=== PATIENT | male | born 1945 | race African-American/Black ===

== ENCOUNTER 2017-12-31 11:55 | Inpatient (IN) ==
[~2017-12-31 11:55] MED LIST: *HR* Amiodarone 150 MG/3 ML VIAL IVPB ONE; *HR* EPINEPHrine 1 MG/10 ML SYRINGE IVP ONE
[2017-12-31] MEDS ORDERED: *HR* Heparin 5,000 UNIT/ML VIAL ONE (12:00)
[2017-12-31] MEDS ORDERED: *HR* Ticagrelor 90 MG TABLET ONE (12:00)
[2017-12-31] MEDS ORDERED: *HR* Ticagrelor 90 MG TABLET PO ONE (12:00)
[2017-12-31] MEDS ORDERED: 0.9 % Sodium Chloride 1,000 ML ONE ×3 (12:00→12:19)
[2017-12-31] MEDS ORDERED: *HR* Heparin 5,000 UNIT/ML VIAL IVP ONE (12:03)
[2017-12-31] MEDS ORDERED: *HR* Heparin 5,000 UNIT/ML VIAL IVP PRN ×2 (12:03)
[2017-12-31] MEDS ORDERED: Verapamil 5 MG/2 ML VIAL ONE (12:04)
[2017-12-31] MEDS ORDERED: ISOVUE-370 200 ML INFUS..BTL IV ONE ×2 (12:05→13:03)
[2017-12-31] MEDS ORDERED: Heparin 1,000 UNITS/500 mL 500 ML ONE (12:05)
[2017-12-31] MEDS ORDERED: *HR* Heparin 10,000 UNIT/10 ML VIAL ONE (12:05)
[2017-12-31] MEDS ORDERED: Nitroglycerin 1,000 MCG/10 ML VIAL IV ONE (12:05)
--- NOTE | 2017-12-31 12:06 | Emergency Department Note ---
Disposition Clinical Impression: Ventricular fibrillation STEMI (ST elevation myocardial infarction) Qualifiers: Involved coronary artery: unspecified coronary artery Qualified Code(s): I21.3 - ST elevation (STEMI) myocardial infarction of unspecified site Disposition: Home, Self-Care Condition: Serious [facility] Care Provider[facility] - Forms: ED Satisfaction Letter Time of Disposition: 12:36 Chest Pain HPI - General Chief Complaint: ED Chest Pain Stated Complaint: Possible Stemi Time Seen by Provider: 12/31/17 12:00 Source: patient, EMS Mode of arrival: EMS Limitations: no limitations Vital Signs Reviewed: Yes Nursing Notes Reviewed: Yes - History of Present Illness HPI Narrative: Patient is a 72-year-old male with past medical history of CAD, previous VT several years ago, HTN, HLD. Presents today due to chest discomfort. He stated that the chest pain started around 11:20 AM while he was up walking around. Describes as a left-sided chest discomfort, dull ache, associated with sweating. Denies any nausea, vomiting, radiation. Also admits to mild shortness of breath. Denies any abdominal pain. Unsure if this feels like previous VT. He walked into a fire station with complaint of chest discomfort. He was given aspirin 325 and 1 nitroglycerin while in route. EKG was performed and showed concern for STEMI in inferior leads. STEMI was called at 1150 prior to the patient's arrival. Severity scale (1-10): 5 - Related Data Allergies Allergy/AdvReac Type Severity Reaction Status Date / Time No Known Allergies Allergy Unverified 03/13/16 10:23 All systems ED: reviewed and negative except as stated. Constitutional: Denies: fever Cardiovascular: Reports: chest pain Respiratory: Reports: dyspnea Gastrointestinal: Denies: abdominal pain, nausea, vomiting, diarrhea Genitourinary: Denies: urgency, dysuria, frequency Integumentary: Denies: rash Neurological: Denies: headache, weakness, numbness, paresthesias Chest Pain PMH - Past Medical History Medical history: Reports: CVA, hyperlipidemia, hypertension, myocardial infarction Psychiatric history: Reports: anxiety, depression - Social History Smoking Status: Current every day smoker Alcohol use: Reports: none Drug use: Reports: none Physical Exam - General Limitations: no limitations General appearance: alert, in no apparent distress - Head Head exam: atraumatic, normocephalic, normal inspection - Eye Eye exam: Present: normal appearance, PERRL, EOMI - ENT ENT exam: normal exam, normal oropharynx, mucous membranes moist - Neck Neck exam: Present: normal inspection, full ROM, trachea midline - Chest Chest inspection: Present: normal inspection, symmetric chest wall rise - Respiratory Respiratory exam: Present: normal lung sounds bilaterally - Cardiovascular Cardiovascular exam: Present: regular rate, normal rhythm, normal heart sounds - Abdominal Exam Abdominal exam: Present: soft, Non-Tender. Absent: tenderness, distention, guarding, rebound, rigidity - Extremities Exam Extremities exam: Present: normal inspection, full ROM. Absent: tenderness, pedal edema - Neurological Exam Neurological exam: Present: alert, oriented X3. Absent: motor sensory deficit - Psychiatric Psychiatric exam: Present: normal affect, normal mood - Skin Skin exam: Present: warm, dry, intact, normal color Course Course Narrative: 11:50 STEMI alert called prior to arrival. EKG transmitted #1 time 11:42. Normal sinus rhythm. Rate 46. Normal axis. ST elevation in 2, 3, aVF, ST depression in aVL. 12:04 EKG #2. 12:00. Normal sinus rhythm. Heart rate 80. KS 230. QRS 85. QTc 453. Normal axis. ST elevation in 2, 3, aVF. ST depression in 1, aVL. Spoke with Dr. Steiner, whenever history of present illness, EKG, physical exam. Agreed with STEMI alert, will take patient to the catheter lab. Patient was given Brilinta, heparin bolus, artery received aspirin 325 and one nitroglycerin prior to arrival. Pain rated a 5/10, declining nitro at this time. 12:12 Patient went into V. fib and then coded, underwent 2 rounds of compressions, 2 different formulations at 360 J, was given one epinephrine and one bolus of amiodarone. Cardiology was called during this, came to bedside. Patient had return of spontaneous circulation, is now currently smiling, saying that he "feels fine." Denies any other shortness of breath or any new symptoms. His blood pressure remained stable at this time. Repeat EKG showed worsened ST elevations in 2, 3, aVF. Now tachycardic after epinephrine. Patient was stable for immediate transfer to [facility]. I walked with the patient to the [facility], patient was stable during the entire transient, continues to mentate well, was stable when transferring over to the [facility] table. Dr. Steiner present during this event. Vital Signs Temperature 97.7 F 12/31/17 11:58 Pulse Rate 85 12/31/17 11:58 Respiratory Rate 18 12/31/17 11:58 Blood Pressure 129/110 12/31/17 11:58 O2 Sat by Pulse Oximetry 99 12/31/17 11:58 Temperature 97.7 F 12/31/17 11:58 Pulse Rate 79 12/31/17 12:28 Respiratory Rate 25 12/31/17 12:28 Blood Pressure 203/108 12/31/17 12:28 O2 Sat by Pulse Oximetry 100 12/31/17 12:28 Oxygen Delivery Oxygen Delivery Room Air Chest Pain - MDM Narrative Medical decision making narrative: 11:50 STEMI alert called prior to arrival. EKG transmitted #1 time 11:42. Normal sinus rhythm. Rate 46. Normal axis. ST elevation in 2, 3, aVF, ST depression in aVL. 12:04 EKG #2. 12:00. Normal sinus rhythm. Heart rate 80. KS 230. QRS 85. QTc 453. Normal axis. ST elevation in 2, 3, aVF. ST depression in 1, aVL. Spoke with Dr. Steiner, whenever history of present illness, EKG, physical exam. Agreed with STEMI alert, will take patient to the catheter lab. Patient was given Brilinta, heparin bolus, artery received aspirin 325 and one nitroglycerin prior to arrival. Pain rated a 5/10, declining nitro at this time. 12:12 Patient went into V. fib and then coded, underwent 2 rounds of compressions, 2 different formulations at 360 J, was given one epinephrine and one bolus of amiodarone. Cardiology was called during this, came to bedside. Patient had return of spontaneous circulation, is now currently smiling, saying that he "feels fine." Denies any other shortness of breath or any new symptoms. His blood pressure remained stable at this time. Repeat EKG showed worsened ST elevations in 2, 3, aVF. Now tachycardic after epinephrine. Patient was stable for immediate transfer to [facility]. I walked with the patient to the [facility], patient was stable during the entire transient, continues to mentate well, was stable when transferring over to the [facility] table. Dr. Steiner present during this event. - Medical Records Medical records reviewed: Yes I reviewed the patient's medical records. - Lab Data Lab results reviewed: Yes I reviewed the patient's lab results. Result diagrams: 12/31/17 12:00 Lab Results 12/31/17 12/31/17 Range/Units 12:00 12:00 WBC 19.5 H (4.3-11.1) K/mcL RBC 4.89 (4.19-5.50) M/mcL Hgb 15.5 (12.9-16.9) g/dL Hct 47.4 (37.5-50.1) % MCV 96.9 (83.0-100.0) fL MCH 31.7 (28.0-33.3) pg MCHC 32.7 (31.6-35.5) g/dL RDW 13.2 (11.5-14.5) % Plt Count 321 (140-400) K/mcL MPV 9.1 L (9.4-12.4) fL Immature Gran % 0.5 (0-4) % Seg Neutrophils % 75.3 % Lymphocytes % 17.1 % Monocytes % 5.4 % Eosinophils % 1.0 % Basophils % 0.7 % Neutrophils # 14.7 H (1.6-8.9) K/mcL Lymphocytes # 3.3 (0.6-4.6) K/mcL Monocytes # 1.1 (0.0-1.3) K/mcL Eosinophils # 0.2 (0.0-0.6) K/mcL Basophils # 0.1 (0.0-0.2) K/mcL PT 10.5 (9.4-12.1) Seconds INR 0.9 APTT 33.0 (26.0-36.0) Seconds Heparin Anti-Xa, Unfract 0.06 L (0.30-0.70) IU/mL - Radiology Data Radiology results reviewed: Yes I reviewed the patient's radiology results. S.B.A.R. - S.B.A.R. Situation: Demographics, MOA Background: Presenting Complaint, Relevant PMH, Meds, & Allergies Assessment: Vital Signs, Course and respsone to treatment, Exam Concerns, Patient/Family Expectation, Pertinant Lab Results, Outstanding Labs Recommendation: Barrier(s) to disposition, Recommendation based on pending studies, treatments, or consults S.B.A.R. Report Given to: Dr. Steiner
--- NOTE | 2017-12-31 12:07 | Emergency Department Note ---
Disposition Clinical Impression: STEMI (ST elevation myocardial infarction), Ventricular fibrillation Disposition: Home, Self-Care Condition: Serious General Adult HPI - General Chief complaint: ED Chest Pain Stated complaint: Possible Stemi Time Seen by Provider: 12/31/17 12:00 Source: EMS Limitations: no limitations Nursing Notes Reviewed: Yes Vital Signs Reviewed: Yes - History of Present Illness Pain Scale: 5 - Related Data Home Medications Medication Instructions Recorded Confirmed Ascorbic Acid [Vitamin C] 250 mg PO DAILY 12/31/17 12/31/17 Aspirin [Adult Aspirin] 81 mg PO DAILY 12/31/17 12/31/17 Lisinopril [Zestril] 20 mg PO DAILY 12/31/17 12/31/17 Metoprolol XL (24 HR) Succ [Toprol 50 mg PO DAILY 12/31/17 12/31/17 XL] Simvastatin [Zocor] 20 mg PO HS 12/31/17 12/31/17 hydroCHLOROthiazide 25 mg PO DAILY 12/31/17 12/31/17 [Hydrochlorothiazide] Allergies Allergy/AdvReac Type Severity Reaction Status Date / Time No Known Allergies Allergy Unverified 03/13/16 10:23 Past Medical History - Past Medical History Medical history: Reports: CVA, hyperlipidemia, hypertension, myocardial infarction Psychiatric history: Reports: anxiety, depression - Social History Smoking Status: Current every day smoker Smokeless Tobacco Status: No Alcohol use: Reports: none Drug use: Reports: none Physical Exam - General Limitations: no limitations General appearance: alert, in no apparent distress Course Vital Signs Temperature 97.7 F 12/31/17 11:58 Pulse Rate 85 12/31/17 11:58 Respiratory Rate 18 12/31/17 11:58 Blood Pressure 129/110 12/31/17 11:58 O2 Sat by Pulse Oximetry 99 12/31/17 11:58 Temperature 97.7 F 12/31/17 11:58 Pulse Rate 79 12/31/17 12:28 Respiratory Rate 25 12/31/17 12:28 Blood Pressure 203/108 12/31/17 12:28 O2 Sat by Pulse Oximetry 100 12/31/17 12:28 Oxygen Delivery Oxygen Delivery Room Air Medical Decision Making - MDM Narrative Medical decision making narrative: Patient was waiting to go over to the [facility] since they have a catheter patient on the table. Patient had no complaints and then suddenly nurse noted him to go into V. fib A. fib. They started CPR immediately. We came into the room and evaluated him he was not conscious CPR is in progress. V. fib on the monitor. He get defibrillated 2 with 360 J and 1 mg of epinephrine. He came back started talking to us said he was feeling fine and she smiled. Moving all extremities. He was started on amiodarone is to start and have some couplets on his EKG. Dr. Steiner from cardiology was in the room. And they have taken to catheter lab now. I had a significant other, and see him before he went over to catheter lab. Impression is #1 inferior wall STEMI. Number to V. fib arrest with successful resuscitation. Patient's in critical condition though he does look well. And is in [facility] at this time with ICU bed placement afterwards. - Lab Data Result diagrams: 12/31/17 12:00 12/31/17 12:00 Lab Results 12/31/17 12/31/17 12/31/17 Range/Units 12:00 12:00 12:00 WBC 19.5 H (4.3-11.1) K/mcL RBC 4.89 (4.19-5.50) M/mcL Hgb 15.5 (12.9-16.9) g/dL Hct 47.4 (37.5-50.1) % MCV 96.9 (83.0-100.0) fL MCH 31.7 (28.0-33.3) pg MCHC 32.7 (31.6-35.5) g/dL RDW 13.2 (11.5-14.5) % Plt Count 321 (140-400) K/mcL MPV 9.1 L (9.4-12.4) fL Immature Gran % 0.5 (0-4) % Seg Neutrophils % 75.3 % Lymphocytes % 17.1 % Monocytes % 5.4 % Eosinophils % 1.0 % Basophils % 0.7 % Neutrophils # 14.7 H (1.6-8.9) K/mcL Lymphocytes # 3.3 (0.6-4.6) K/mcL Monocytes # 1.1 (0.0-1.3) K/mcL Eosinophils # 0.2 (0.0-0.6) K/mcL Basophils # 0.1 (0.0-0.2) K/mcL PT 10.5 (9.4-12.1) Seconds INR 0.9 APTT 33.0 (26.0-36.0) Seconds Heparin Anti-Xa, Unfract 0.06 L (0.30-0.70) IU/mL Sodium 135 L (136-145) mEq/L Potassium 4.3 (3.5-5.1) mEq/L Chloride 101 (98-107) mEq/L Carbon Dioxide 24 (23-29) mEq/L BUN 15 (8-23) mg/dL Creatinine 1.46 H (0.70-1.30) mg/dL Est GFR ( Amer) 58 L (> 60) Est GFR (Non-Af Amer) 47 L (> 60) BUN/Creatinine Ratio 10 (6-26) Glucose 186 H (70-105) mg/dL Calculated Osmolality 286 (280-300) Calcium 9.7 (8.6-10.3) mg/dL Magnesium 1.8 (1.6-2.6) mg/dL Troponin I 0.10 H* (< 0.04) ng/mL Critical Care Time Critical Care Time: Yes Total Critical Care Time: 30 Attestation: Excluding separately billable procedures And time of CPR. Attestation Statement - Attestation Attestation: This documentation is done with the assistance of Dragon dictation. Despite efforts made to ensure accuracy, there may be inaccuracies in make ready mechanic or spelling and typographical errors. I examined this patient and my medical decision-making was reviewed with the Resident Physician. I agree with the documented findings, disposition and treatment plan as described except to the extent set forth below. Patient seen and evaluated on arrival with EMS and Dr. Ruiz, I agree with his evaluation and management plan, I supervised the care of the patient's stay. Patient presents today with chest pain started approximately far to 60 minutes prior to arrival. He went over to the fire station. His chest pain then. He had elevated blood pressure 150s, did have history of HI in the past with No stents. He states the pain was in the retrosternal portion left chest without radiation was a little diaphoretic and shortness of breath with this. When nitroglycerin rubs pain down to 5. Baby aspirin prior to arrival. His EKG was transmitted here prior to arrival and meet STEMI criteria, STEMI alert was called. Patient will get heparin and Proventil. And then waiting on [facility]. Patient's in agreement with plan. He looks well at this time.
[2017-12-31] MEDS ORDERED: Heparin 25,000 UNIT/500 ML D5W 25,000 UNIT/500 ML BAG IVC SCH (12:15)
[2017-12-31 12:16] LABS: Basophils # 0.1 K/mcL (0.0-0.2); Basophils % 0.7 %; Eosinophils # 0.2 K/mcL (0.0-0.6); Hematocrit 47.4 % (37.5-50.1); Hemoglobin 15.5 g/dL (12.9-16.9); Immature Granulocytes % 0.5 % (0-4); Lymphocytes # 3.3 K/mcL (0.6-4.6); Lymphocytes % 17.1 %; Mean Corpuscular HGB Conc 32.7 g/dL (31.6-35.5); Mean Corpuscular Hemoglobin 31.7 pg (28.0-33.3); Mean Corpuscular Volume 96.9 fL (83.0-100.0); Mean Platelet Volume 9.1 fL (9.4-12.4); Monocytes # 1.1 K/mcL (0.0-1.3); Monocytes % 5.4 %; Neutrophils # 14.7 K/mcL (1.6-8.9); Platelet Count 321 K/mcL (140-400); Red Blood Count 4.89 M/mcL (4.19-5.50); Red Cell Distribution Width 13.2 % (11.5-14.5); Segmented Neutrophils % 75.3 %
[2017-12-31 12:23] LABS: INR 0.9; Prothrombin Time 10.5 Seconds (9.4-12.1)
[2017-12-31 12:24] LABS: Heparin anti-factor XA UFH 0.06 IU/mL (0.30-0.70)
--- NOTE | 2017-12-31 12:32 | History & Physical Report ---
Date of Encounter: 12/31/17 Time of Encounter: 12:30 24 Hour HP Update - Instructions Instructions: If the History and Physical is less than 30 days old and was completed prior to A.M. admission and or procedure and has NOT been updated on calendar day of procedure please complete this update prior to performing procedure. - Update Patient reports changes in Medical Condition: No Changes in examination, assessment, or condition: No Changes in Medication: No Preop tests/diagnostics Reviewed: Yes Surgery Remains Indicated: Yes Consent for Planned Operative Procedure(s) Verified: Yes
[2017-12-31] MEDS ORDERED: *HR* Phenylephrine 10 MG/ML VIAL ONE (12:39)
[2017-12-31] MEDS ORDERED: *HR* EPINEPHrine 1 MG/10 ML SYRINGE IVP ONE (12:41)
[2017-12-31] MEDS ORDERED: Amiodarone Premix 150 MG/100 ML BAG IVPB ONE (12:42)
[2017-12-31 12:45] LABS: Troponin I 0.1 ng/mL (< 0.04)
[2017-12-31] MEDS ORDERED: *HR* FentaNYL (PF) 100 MCG/2 ML VIAL ONE (12:50)
[2017-12-31] MEDS ORDERED: *HR* Midazolam HCl 2 MG/2 ML VIAL ONE (12:50)
[2017-12-31] MEDS ORDERED: *HR* Midazolam HCl 5 MG/5 ML VIAL IVP ONE (13:00)
[2017-12-31] MEDS ORDERED: Tirofiban 12.5 MG/250ML 12.5 MG/250 ML BAG ONE (13:01)
[2017-12-31 13:07] LABS: Calcium 9.7 mg/dL (8.6-10.3); Magnesium 1.8 mg/dL (1.6-2.6); Potassium 4.3 mEq/L (3.5-5.1)
[2017-12-31] MEDS ORDERED: Ondansetron 4 MG/2 ML VIAL ONE (13:18)
--- NOTE | 2017-12-31 14:01 | Pre-Sedation Evaluation ---
Pre-sedation evaluation - Pre-sedation checklist Date of procedure: 12/31/17 Procedure: [facility] Recent Vitals: Last Vital Signs Temp 97.7 F 12/31/17 11:58 Pulse 79 12/31/17 12:28 Resp 25 12/31/17 12:28 BP 203/108 12/31/17 12:28 Pulse Ox 100 12/31/17 12:28 H&P (including ROS) documented in medical record: Yes Previous reaction to sedatives/anesthetics: No Dietary Status: unknown Dentition: No loose teeth or bridges ASA Classification *see protocol: CLASS V-Morbid complications, operation only hope of survival, [id number] to any of the above to indicate emergent Plan of Care: Pt appropriate candidate for procedure/moderate/conscious sedation , Risks/benefits of procedure/sedation discussed w/ patient/family, If not NPO; Risk of intake outweiged by necessity to perform procedure Cardiac Registry (Cardio Only) - Functional Capacity Functional Capacity: Unknown - Clincal Frailty Scale Clinical Frailty Scale: Vulnerable
[2017-12-31] MEDS ORDERED: Ondansetron 4 MG/2 ML VIAL IVP PRN ×2 (14:02→14:08)
[2017-12-31] MEDS ORDERED: Acetaminophen 325 MG TABLET PO PRN (14:08)
[2017-12-31] MEDS ORDERED: *HR* HYDROcodone/Acet 5/325 mg TABLET PO PRN (14:08)
--- NOTE | 2017-12-31 14:14 | Cardiology History & Physical ---
Date of Encounter: 12/31/17 Time of Encounter: 14:00 Assessment and Plan (1) Cardiac arrest Current Visit: Yes Status: Acute on amiodarone. guarded prognosis. patient progressively hypotensive despite vasopressors, will likely need lvad - impella support. Total critical care time 1 hour The assessment and plan as outlined above was discussed with the patient and/or family members who expressed understanding and agreement. All questions were answered. (2) Cardiogenic shock Current Visit: Yes Status: Acute see - cardiac arrest The assessment and plan as outlined above was discussed with the patient and/or family members who expressed understanding and agreement. All questions were answered. (3) STEMI (ST elevation myocardial infarction) Current Visit: Yes Status: Acute Emergent LHC for life saving purpose after cardiac arrest and cardiogenic shock. Pt/family agreeable. ASpirin, brilinta, tirofiban to be given. Probable Impella given cardiac arrest and progressive hypotension. The assessment and plan as outlined above was discussed with the patient and/or family members who expressed understanding and agreement. All questions were answered. Qualifiers: Involved coronary artery: right coronary artery Qualified Code(s): I21.11 - ST elevation (STEMI) myocardial infarction involving right coronary artery History of Present Illness Chief complaint: chest pain / cardiac arrest HPI: Mr. Avalos is a 72 year old male with history of NH presented with severe retrosternal pain and found to have Inferior STEMI. Patient went into VT arrest in the ED and CPR was initiated with defibrillation x 1. Patient became hypotensive with BP 60/30s and minimally responsive. Dopamine started and levophed push. Past Med Surg Social Fam HX - Past Medical History Medical history: CVA, hyperlipidemia, hypertension, myocardial infarction Psychiatric history: anxiety, depression - Social History Smoking Status: Current every day smoker Smokeless Tobacco Status: No Alcohol use: none Drug use: none - Additional Family History Additional family history: unable to obtain, patient in cardiac arrest Medications and Allergies Ascorbic Acid [Vitamin C] 250 mg PO DAILY 12/31/17 [History] Aspirin [Adult Aspirin] 81 mg PO DAILY 12/31/17 [History] Lisinopril [Zestril] 20 mg PO DAILY 12/31/17 [History] Metoprolol XL (24 HR) Succ [Toprol XL] 50 mg PO DAILY 12/31/17 [History] Simvastatin [Zocor] 20 mg PO HS 12/31/17 [History] hydroCHLOROthiazide [Hydrochlorothiazide] 25 mg PO DAILY 12/31/17 [History] 3 Allergy/AdvReac Type Severity Reaction Status Date / Time No Known Allergies Allergy Unverified 03/13/16 10:23 All Systems Review: The remainder of the systems were reviewed and are negative - Constitutional Constitutional: no chills, no fever(s) - EENT Eyes: no blurred vision, no loss of vision Nose, mouth and throat: no dysphagia, no odynophagia - Cardiovascular Cardiovascular: chest pain at rest, chest pain with exertion, syncope, no rapid heart rate - Respiratory Respiratory: no hemoptysis, no wheezing - Gastrointestinal Gastrointestinal: no hematemesis, no hematochezia - Genitourinary Genitourinary: no hematuria, no nocturia - Musculoskeletal Musculoskeletal: no muscle cramps, no muscle weakness - Integumentary Integumentary: no erythema, no unusual bruising - Neurological Neurological: syncope, no tingling - Psychiatric Psychiatric: no hallucinations, no panic attacks Physical Examination General: Other (distressed, minimally responsive in medical laboratory technicians after VT cardiac arrest in ED) HEENT: Atraumatic, Normocephaly Neck: No JVD Cardiac: Reg Rate and Rhythm, No Murmur Lungs: Other (bibasilar crackles) Neuro: Alert and responsive, No focal deficits noted Abdomen: Soft, Non-Tender Skin: No rashes noted on visualized skin Musculoskeletal: No Chest Wall Tenderness Extremities: No Edema Results 12/31/17 12:00 12/31/17 12:00 - EKG Interpretation EKG results cardiology: personally reviewed, sinus rhythm (inferior STEMI with significant ST elevation)
[2017-12-31] MEDS ORDERED: Tirofiban 12.5 MG/250ML 12.5 MG/250 ML BAG IVC SCH (14:15)
--- NOTE | 2017-12-31 14:37 | Invasive Diagnostic Lab Proc ---
Name: Vin Avalos Date of Study: 12/31/2017 Date: 1945 Ht: 68.9in Medical Record#: [id number] Age: 72 Wt: 165.35lb Gender: Male BSA: 1.9 Order #: [id number] BMI: 24.49 Physicians Procedure Physician: Marino Steiner MD, [facility] Referring MD: Referring MD: Staff Name Position Time In Isaura Twin RN Monitor 12:33 PM Elo Rubni RN Nurse 12:33 PM Teresa Lowery RN Compressor Station Engineer 12:33 PM Eder Arreaga RT (R) Scrub 12:34 PM Indications Indication STEMI Procedures Performed Procedure L HRT ARTERY/VENTRICLE ANGIO AORTOGRAPHY, ABDOMINAL S&I Insert VAD artery access PRQ CARD KEITH STENT W/ANGIO 1 VSL Pre-Procedure Checklist Informed consent is complete signed and on chart. H&P is on chart. ID band is on and ID verified with patient. Patient NPO for procedure The procedure was described for the patient and questions were answered. Blood Pressure: 66/40 ECG is on chart. Rhythm: NSR Plan of Care Patient will tolerate the procedure without complications. Adequate level of comfort will be maintained. Hemodynamics will remain stable Patient will recover from procedure without complications. Respiratory function will be maintained. Cardiac rhythm will remain stable. Patient temperature will be maintained. Patient and/or family have verbalized understanding of the procedure. Patient Education Intravenous Access Time IV Size Location DC'd Fluid/Drip Rate Units RN 20g 1 1/4" Patent On Arrival Lt AntecubTeresa Paez RN 20g 1 1/4" Patent On Arrival Rt AntecubTeresa Paez RN Allergies No Known Allergies Vital Signs Time BP (mmHg) HR (bpm) O2 Sat. RR (bpm) LOC 12:34 PM / % 4 = Oriented but drowsy 12:35 PM / % 4 = Oriented but drowsy 12:41 PM 73 / 37 49 100 % 14 12:44 PM 89 / 48 49 99 % 22 12:49 PM 123 / 37 56 100 % 19 12:54 PM 129 / 46 71 100 % 17 12:59 PM 137 / 65 69 100 % 21 01:04 PM 134 / 66 63 98 % 19 01:09 PM 140 / 54 74 97 % 17 01:14 PM 130 / 90 100 98 % 21 01:19 PM 133 / 87 91 100 % 19 01:24 PM 128 / 82 83 100 % 26 12:34 PM 66 / 40 56 % 25 12:35 PM 68 / 42 54 % 26 12:38 PM 55 / 39 52 97 % 23 12:38 PM 63 / 43 52 96 % 19 01:29 PM 133 / 63 84 99 % 30 01:34 PM 118 / 52 83 99 % 36 01:39 PM 125 / 67 81 99 % 20 01:44 PM 126 / 74 84 99 % 20 01:49 PM 125 / 71 85 99 % 27 Procedural Medications Time Medication Dose Units Method Given By 12:25 PM Amiodarone 250 ml/hr Intravenous 12:35 PM Oxygen 2 L/min nasal cannula Teresa Lowery RN 12:38 PM Lidocaine 2% 10 ml Subcutaneous Marino Steiner MD, [facility] 12:39 PM Dopamine 10 mg/kg/min Intravenous Teresa Lowery RN 12:40 PM Neosynephrine 100 mcg Intravenous Elo Rubin RN 12:51 PM Versed 2 mg Intravenous Teresa Lowery RN 12:51 PM Fentanyl 50 mcg Intravenous eTresa Lowery RN 12:57 PM Heparin 2000 units Intravenous Teresa Lowery RN 12:59 PM Fentanyl 25 mcg Intravenous Elo Rubin RN 01:01 PM Dopamine 5 mg/kg/min Intravenous Teresa Lowery RN 01:02 PM Versed 1 mg Intravenous Teresa Lowery RN 01:03 PM Aggrastat Bolus: 37.5 ml Intravenous Teresa Lowery RN 01:03 PM Aggrastat 12.5mg/250ml 13.5 ml/hr Intravenous Teresa Lowery RN 01:18 PM Zofran 8 mg Intravenous Teresa Lowery RN 01:24 PM Nitroglycerin 150 mcg Intracoronary Marino Steiner MD Wiliam Score Preprocedure Postprocedure Activity 2- Moves 4 extremities sustained head lift Activity 2- Moves 4 extremities sustained head lift Circulation 2- SBP +/= 20 points of pre-anesthetic level Circulation 2- SBP +/= 20 points of pre-anesthetic level Consciousness 2- Awake and alert oriented x 3 Consciousness 2- Awake and alert oriented x 3 O2 Saturation 2- Able to maintain O2 satruation of 92% on room air O2 Saturation 2- Able to maintain O2 satruation of 92% on room air Respiratory 2- Able to deep breathe and cough well Respiratory 2- Able to deep breathe and cough well Total Score 10 Total Score 10 Contrast Agent: Isovue Diagnostic Contrast: 132 ml Total Contrast: 132 ml Fluoro Dose: 5931 mGy Activated Clotting Time Time Seconds to Clot 01:13 PM 321 01:49 PM 252 Procedure Log Time Note Enter By 12:02 PM .018 Abiomed 260cm guide wire inserted through catheter. [facility] 12:25 PM Pt arrived to orthodontic lab technician 2 at 12:25 [facility] 12:25 PM Patient arrived at 12:25 with Amiodarone Intravenous drip @ [facility] ml[facility] 12[facility] PM CathStat 12:33 PM Vitals capture started with the following parameters, Patient=Adult, Interval=5 min, Initial Zrerhevb=054 mmHg, Deflation Rate=5 mmHg, Cuff placed on Right Arm 12:33 PM Twin Delarosa RN Position: Monitor Time in: 12:[facility] 12:33 PM Elo Rubin RN Position: Nurse Time in: :[facility] 12:34 PM Teresa Lowery RN Position: Compressor Station Engineer Time in: :33 [facility] 12:34 PM Eder Arreaga RT (R) Position: Scrub Time in: :34 [facility] 12:34 PM Patient charges- Angio tray pack, Navilyst 3mm J, Pulse Oximetry and ACIST tubing and transducer [facility] 12:34 PM HR=56 bpm, NIBP=66/40 mmhg, Resp=25 B/min 12:34 PM Hair removed from procedure site in procedure lab using clippers. Bilateral groin prepped with Chloraprep by Eder Arreaga RT (R), then patient was draped. Skin intact. [facility] 12:34 PM Physician arrived 12:34 [facility] 12:34 PM Meet and greet completed [facility] 12:34 PM NIBP STAT measurement started. 12:34 PM Sign in performed according to hospital policy. Informed consent was obtained. [facility] 12:34 PM Procedure start :34 [facility] 12:34 PM Time: 12:34 Patient comfortable and pain free: Yes [facility] 12:34 PM Pressure channel 1 zeroed. 12:35 PM Time: 12:34LOC: 4 = Oriented but drowsy [facility] 12:35 PM HR=54 bpm, NIBP=68/42 mmhg, Resp=26 B/min 12:35 PM Time: 12:35 Oxygen on at 2 L/min per nasal cannula by Teresa Lowery RN [facility] 12:35 PM Critical cardiac patient with acute [place] was brought emergently to the cardiac director of cardiac cath lab for immediate coronary angiography and intervention if clinically indicated. [facility] 12:37 PM NIBP STAT measurement started. 12:38 PM HR=52 bpm, NIBP=55/39 mmhg, SpO2=97 %, Resp=23 B/min 12:38 PM Time out was performed according to hospital policy. Conscious sedation and anesthesia was achieved (see medication log with in this report above) [facility] 12:38 PM HR=52 bpm, NIBP=63/43 mmhg, SpO2=96.0 %, Resp=19 B/min 12:39 PM Time: 12:38 10 ml Lidocaine 2% to right groin Subcutaneous Given by Marino Steiner MD, [facility] 12:39 PM Time: 12:39 Dopamine 10 mg/kg/min Intravenous Given [facility] 12:40 PM Time: 12:40 Neosynephrine 100 mcg Intravenous Given by Elo Rubin RN [facility] 12:40 PM Clinical Presentation: STEMI or equivalent [facility] 12:40 PM Access obtained by percutaneous puncture. 6Fr 10cm Terumo Stewardson sheath placed in right Femoral artery. [id number] [facility] 12:41 PM 5Fr FR 4 catheter inserted over the wire [facility] 12:41 PM NIBP STAT measurement started. 12:41 PM HR=49 bpm, NIBP=73/37 mmhg, RpQ4=144 %, Resp=14 B/min 12:42 PM RCA angiography performed in multiple views. [facility] 12[facility] PM Inflation device was [facility]. [facility] 12[facility] PM Inflation device was opened. [facility] 12:43 PM Lesion found in Proximal RCA. Pre Stenosis: 100 Pre MARCI Flow: 0: No Flow/No perfusion [facility] 12:43 PM Recorded Pressure: Ao, HR=49, Condition=Condition 1 (Aorta) Ao 94/7/34 12:43 PM Recorded Pressure: LV, HR=49, Condition=Condition 1 (Left Ventricle) LV 99/7/23 12:44 PM Catheter removed [facility] 12:44 PM HR=49 bpm, NIBP=89/48 mmhg, SpO2=99 %, Resp=22 B/min 12:45 PM 5Fr Pigtail catheter inserted over the wire DNC [facility] 12:45 PM Catheter crossed the aortic valve and was selectively placed in the left ventricle. Pressures recorded on pullback for left heart catheterization. [facility] 12:45 PM Bolus angiogram of abdominal aorta complete: 10 ml/sec for a total of 20 mls [facility] 12:45 PM Perfusion arrived [facility] 12:45 PM Abdominal aortagram completed for Impella placement. [facility] 12:46 PM Catheter removed [facility] 12:46 PM Access obtained by percutaneous puncture. 5Fr 10cm Terumo Stewardson sheath placed in left Femoral artery. [id number] [facility] 12:47 PM Right Coronary, Right Posterior Descending Arteries with Right Posterolateral and Acute Marginal branches with 100 % stenosis. If graft is supplying this area, 0 % stenosis [facility] 12:49 PM HR=56 bpm, SDJR=562/37 mmhg, VwR4=895.0 %, Resp=19 B/min 12:51 PM Access obtained by percutaneous puncture. 14Fr 30cm Abiomed sheath placed in left femoral artery. [id number] [facility] 12:51 PM Time: 12:51 Versed 2 mg Intravenous Given by Teresa Lowery RN [facility] 12:51 PM Time: 12:51 Fentanyl 50 mcg Intravenous Given by Teresa Lowery RN [facility] 12:52 PM 5Fr Pigtail catheter inserted over the wire DNC (Left groin) [facility] 12:54 PM HR=71 bpm, RCAL=759/46 mmhg, LnK5=107.0 %, Resp=17 B/min 12:54 PM .018 Abiomed 260cm guide wire inserted through catheter. [facility] 12:55 PM Catheter removed [facility] 12:57 PM Impella Catheter inserted over .018 wire. [id number]. *ACC* catheter inserted 11 [facility] 12:57 PM Time: 12:57 Heparin 2000 units Intravenous Given by Teresa Lowery RN [facility] 12:58 PM Impella catheter inserted accrossed valve and position in left ventricle. .018 wire removed. Catheter attached to pump. [facility] 12:58 PM Impella Pump started in auto. [facility] 12:59 PM Time: 12:59 Fentanyl 25 mcg Intravenous Given by Elo Rubin RN [facility] 12:59 PM HR=69 bpm, FPAZ=643/65 mmhg, JnH0=040 %, Resp=21 B/min 12:59 PM Recorded Pressure: Ao, HR=70, Condition=Condition 1 (Aorta) Ao 125/54/74 01:01 PM 6Fr JR 4 Runway guide catheter was used to cannulate the PCI vessel successfully. reused? No [facility] 01:01 PM .014 [place] 180cm guide wire across target lesion- successful. reused? No [facility] 01:02 PM Time: 13:01 Dopamine 5 mg/kg/min Intravenous Given by Teresa Lowery RN 01:02 PM Time: 13:02 Versed 1 mg Intravenous Given by Teresa Lowery [facility] 01:02 PM Recorded Pressure: Ao, HR=65, Condition=Condition 1 (Aorta) Ao 116/55/75 01:03 PM 2.25 mm x 15 mm Trek Rx balloon across target lesion- successful. reused? No [place] 01:03 PM Time: 13:03 Aggrastat Bolus: 37.5 ml Intravenous Given by Teresa Lowery RN [email or web address] 01:03 PM Time: 13:03 Aggrastat 12.5mg/250ml 13.5 ml/hr Intravenous Given by Teresa Lowery RN [facility] 01:04 PM HR=63 bpm, PUTD=330/66 mmhg, SpO2=98.0 %, Resp=19 B/min, Comment=nsr 01:04 PM Balloon inflated @ 14 rc for 14 seconds Proximal RCA [facility] 01:05 PM Balloon inflated @ 14 rc for 12 seconds Proximal RCA [facility] 01:07 PM Recorded Pressure: Ao, HR=63, Condition=Condition 1 (Aorta) Ao 99/55/73 01:08 PM Balloon inflated @ 14 rc for 12 seconds Mid RCA [facility] 01:08 PM Recorded Pressure: Ao, HR=87, Condition=Condition 1 (Aorta) Ao 114/58/79 01:09 PM HR=74 bpm, WGGO=829/54 mmhg, SpO2=97 %, Resp=17 B/min 01:09 PM Balloon catheter removed intact. tsoummers 01:09 PM dopamine off. tsoummers 01:10 PM Recorded Pressure: Ao, LL=397, Condition=Condition 1 (Aorta) Ao 139/73/100 01:11 PM 2.5mm x 33mm Cordis EluNIR drug-eluting stent across target lesion- successful Lot #[id number] tsoummers 01:12 PM Stent delivery system removed intact. Undeployed tsoummers 01:13 PM 2.5 mm x 20mm NC Emerge balloon across target lesion- successful. reused? No tsoummers 01:13 PM At 13:13 the ACT was 321 seconds. tsoummers 01:13 PM Balloon inflated @ 16 rc for 18 seconds tsoummers 01:14 PM YL=705 bpm, KHKX=848/90 mmhg, SpO2=98.0 %, Resp=21 B/min 01:14 PM Lesion found in Mid RCA. Pre Stenosis: 100 Pre MARCI Flow: tsoummers 01:14 PM Balloon inflated @ 16 rc for 11 seconds tsoummers 01:14 PM Balloon catheter removed intact. tsmm 01:16 PM Stent re-inserted. tsmm 01:17 PM Stent deployed @ 14 rc for 20 seconds tsoumm 01:18 PM Time: 13:18 Zofran 8 mg Intravenous Given by Teresa Lowery RN tsoumm 01:19 PM Stent delivery system removed intact. tsoummers 01:19 PM HR=91 bpm, VBRA=995/87 mmhg, YpO1=542.0 %, Resp=19 B/min 01:19 PM Recorded Pressure: Ao, HR=92, Condition=Condition 1 (Aorta) Ao 126/73/96 01:20 PM 3.0 mm x 20mm NC Emerge balloon across target lesion- successful. reused? No tsoummers 01:21 PM Balloon inflated @ 12 rc for 16 seconds tsoummers 01:21 PM Recorded Pressure: Ao, HR=90, Condition=Condition 1 (Aorta) Ao 108/71/89 01:22 PM Balloon inflated @ 12 rc for 12 seconds tsoummers 01:23 PM Balloon catheter removed intact. 01:24 PM HR=83 bpm, COVX=801/82 mmhg, KoF7=062.0 %, Resp=26 B/min 01:25 PM Time: 13:24 Nitroglycerin 150 mcg Intracoronary Given by Marino Steiner MD 01:25 PM Recorded Pressure: Ao, HR=85, Condition=Condition 1 (Aorta) Ao 113/66/87 01:27 PM Balloon catheter removed intact. 01:27 PM Guide catheter removed intact. 01:28 PM 5Fr FL 4 catheter inserted over the wire DNC 01:29 PM HR=84 bpm, UEWU=700/63 mmhg, SpO2=99.0 %, Resp=30 B/min 01:29 PM LCA angiography performed in multiple views. 01:30 PM Catheter removed 01:30 PM Wire removed 01:31 PM right groin shot obtained. 01:32 PM Recorded Pressure: Ao, HR=82, Condition=Condition 1 (Aorta) Ao 124/70/92 01:34 PM HR=83 bpm, DSNR=058/52 mmhg, SpO2=99 %, Resp=36 B/min 01:37 PM Recorded Pressure: Ao, HR=86, Condition=Condition 1 (Aorta) Ao 126/67/92 01:37 PM Weening off the Impella. mm 01:38 PM Recorded Pressure: Ao, HR=83, Condition=Condition 1 (Aorta) Ao 119/56/82 01:39 PM HR=81 bpm, OFLZ=678/67 mmhg, SpO2=99 %, Resp=20 B/min 01:41 PM Impella Pump turned off. mm 01:41 PM Impella pulled out, sheath maintained. mm 01:42 PM Procedure completed at 13:42 12/31/2017[facility] 01:42 PM Did you address MACRI flow and Dominance? Yes [facility] 01:42 PM Sign out completed: Radiation Dose 629 mGy, 5931 cGy/cm2 Fluoro Time: 9.8 Isovue 370 - 200ml contrast 132 ml given by Marino Steiner MD, [facility]. Complications: None. The patient was discharged out of the director of cardiac cath lab in stable condition. Cardiac Rehab Consult needed: YesConfirmed administered medications: Yes tsoummers 01:44 PM HR=84 bpm, RNLZ=543/74 mmhg, SpO2=99.0 %, Resp=20 B/min 01:44 PM Isovue 370 - 200ml,1 Bottle(s) used. tsoummers 01:44 PM x2 Sheath left in place to be pulled on floor/holding areaV+Pad tsoummers 01:44 PM Estimated Blood Loss: less than 50cc tsoummers 01:44 PM Post ECG NSR tsoummers 01:44 PM Post Blood Pressure 126/74 tsoummers 01:45 PM Information taught Cardiac Cath and PCI tsoummers 01:45 PM Education needs Procedure, Plan of Care, and Responsibilities of Patient in Care tsoummers 01:45 PM Learning barriers :None tsoummers 01:45 PM Education Methods Verbal tsoummers 01:45 PM Education evaluation Able to repeat information tsoummers 01:45 PM Site status No bleeding/hematoma - Rt Groin as reported by Eder Arreaga RT (R) at 13:45 x2 tsoummers 01:45 PM Opsite appliedx2 tsoummers 01:47 PM Time: 12:35LOC: 4 = Oriented but drowsy tsoummers 01:47 PM Time: 12:34 Patient comfortable and pain free: Yes tsoummers 01:49 PM HR=85 bpm, WQDP=493/71 mmhg, SpO2=99.0 %, Resp=27 B/min, Comment=nsr 01:49 PM Family placed in consult room. tsoummers 01:49 PM At 13:49 the ACT was 252 seconds. tsoummers 01:50 PM Complications: None tsoummers 01:50 PM Plavix, Effient or Brilinta given Yes tsoummers 02:08 PM Report given to Angela SHAH Pt taken to ICU Room #3. 14:08 tsoummers 02:08 PM Patient out of room: 14:08 tsoummers 02:18 PM Coronary Dominance: right tsoummers 02:18 PM Lesion found in Mid LAD. Pre Stenosis: 50 Pre MARCI Flow: tsoummers 02:18 PM Mid/Distal Left Anterior Descending Coronary Artery and diagonal branches with 50% stenosis. If graft is supplying this area, 0 % stenosis tsoummers 02:18 PM Lesion found in Mid Circumflex. Pre Stenosis: 95 Pre MARCI Flow: tsoummers 02:19 PM Lesion found in 1st Marginal. Pre Stenosis: 75 Pre MARCI Flow: tsoummers 02:19 PM Lesion found in 1st RPL. Pre Stenosis: 90 Pre MARCI Flow: tsoummers 02:20 PM Circumflex, Obtuse Marginal, Left Posterior Descending, and Left Posterolateral Coronary Arteries with 95 % stenosis. If graft is supplying this area, 0 % stenosis tsoummers Complications Complication None None Hemodynamics Pressures Site Systolic/A Wave Diastolic/V Wave Mean AO 94 7 34 LV 99 7 23 AO 125 54 74 AO 116 55 75 AO 99 55 73 AO 114 58 79 AO 139 73 100 AO 126 73 96 AO 108 71 89 AO 113 66 87 AO 124 70 92 AO 126 67 92 AO 119 56 82 Post Procedure Information Blood Pressure: 126/74 mmHg Rhythm: NSR Post procedural instructions were given Closure Device Time Device Success/Fail Manual Compression Manual Compression Site Checks Time Location Status Staff Sheath In? Note 01:45 PM Rt Groin No bleeding/hematoma Eder Arreaga RT (R) Pulses Time Site Pre-Procedure Post-Procedure Note Bilateral DP 1+ 1+ Bilateral radial 2+ 2+ Updated by Twin Delarosa RN on 12/31/2017 2:29:15 PM electronically signed on 12/31/2017 2:30:25 PM with status of Final
--- NOTE | 2017-12-31 17:54 | Electrocardiograph Report ---
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
[2017-12-31] MEDS: *HR* Ticagrelor 90 MG TABLET PO SCH (20:28)
[2018-01-01 04:43] LABS: Basophils # 0.1 K/mcL (0.0-0.2); Basophils % 0.4 %; Eosinophils # 0.1 K/mcL (0.0-0.6); Eosinophils % 0.7 %; Hematocrit 37.4 % (37.5-50.1); Immature Granulocytes % 0.5 % (0-4); Lymphocytes % 11.1 %; Mean Corpuscular HGB Conc 33.7 g/dL (31.6-35.5); Mean Corpuscular Hemoglobin 31.7 pg (28.0-33.3); Mean Corpuscular Volume 94.2 fL (83.0-100.0); Mean Platelet Volume 9.4 fL (9.4-12.4); Monocytes # 1.5 K/mcL (0.0-1.3); Monocytes % 8.2 %; Neutrophils # 14.4 K/mcL (1.6-8.9); Platelet Count 260 K/mcL (140-400); Red Blood Count 3.97 M/mcL (4.19-5.50); Red Cell Distribution Width 13.5 % (11.5-14.5); Segmented Neutrophils % 79.1 %
[2018-01-01 04:50] LABS: Hemoglobin 12.6 g/dL (12.9-16.9)
[2018-01-01 05:01] LABS: BUN/Creatinine Ratio 13 (6-26); Blood Urea Nitrogen 18 mg/dL (8-23); Calcium 8.7 mg/dL (8.6-10.3); Carbon Dioxide 23 mEq/L (23-29); Chloride 106 mEq/L (98-107); Glucose 138 mg/dL (70-105); Osmolality,Calculated 286 (280-300); Potassium 3.6 mEq/L (3.5-5.1); Sodium 136 mEq/L (136-145); eGFR For Non-African Americans 50 (> 60)
[2018-01-01] MEDS: Aspirin 81 MG TAB.CHEW PO SCH (08:50)
[2018-01-01] MEDS: *HR* Ticagrelor 90 MG TABLET PO SCH ×2 (08:50→19:57)
--- NOTE | 2018-01-01 09:06 | Cardiology Progress Note ---
Date of Encounter: 01/01/18 Time of Encounter: 07:30 Assessment and Plan (1) STEMI (ST elevation myocardial infarction) Current Visit: Yes Status: Acute Inferior STEMI s/p emergent LHC (required pressor support, impella temporarily) s/p PTCA/KEITH to RCA. Cardiac arrest (VT) in ED--s/p CPR, defibrillation x2 with ROSC. Started on amiodarone (now off). C 12/31/17: s/p successful PTCA/KEITH to RCA (FL culprit); remaining moderate to severe CAD--50% mLAD with severe bridging; 95% mLCx (small vessel); 75% 1st OM ( small vessel). TTE 12/31/17: LVEF 50-55%, mild asymmetric hypertrophy of the basal septum, mild LV segmental dysfunction, mild LVDD, normal RV structure and function, no significant valvular dysfunction, basal inferior wall hypokinesis. Vitals stable, no longer requiring pressor support. Telemetry reviewed, frequent episodes of NSVT, max 7 beats. No chest pain on exam; does report chest wall tenderness, likely musculoskeletal d/t CPR, defibrillation. WBC elevated upon presentation, downtrending, likely reflexive d/t AMI. Uninterrupted DAPT (asa + brilinta) for a minimum of 1 year. Continue statin. Anticipate starting BB today as BP/HR stable. Recommend at least 48 hours of ICU monitoring. Plan for step down to 2N tomorrow if stable. VTE prophylaxis: Heparin 5000 units SC q12H. Qualifiers: Involved coronary artery: right coronary artery Qualified Code(s): I21.11 - ST elevation (STEMI) myocardial infarction involving right coronary artery (2) Essential hypertension Current Visit: No Status: Chronic Controlled, continue to monitor. Discussion w patient/family: The assessment and plan as outlined above was discussed with the patient and/or family members who expressed understanding and agreement. All questions were answered. Thank you for involving us in the care of your patient. Please call with any questions. The patient will be discussed and reviewed with Dr. Vasquez; changes to be made accordingly. Subjective Principal diagnosis: STEMI, cardiac arrest Interval history: Seen and examined. Events of 12/31/17 reviewed. No recurrent chest pain overnight. No longer on dopamine gtt. He has no complaints upon exam except mild chest wall soreness with deep breathing. No issues with cath site(s). Distal pulses palpable. No chills, cough, or fever noted. Objective Vital Signs, Last 4 Hours Temp Pulse Resp BP Pulse Ox 01/01/18 08:00 72 12 122/59 100 01/01/18 07:06 98.4 F 01/01/18 07:00 72 12 123/52 100 01/01/18 05:55 71 12 130/59 100 General: Conversant, No Apparent Distress HEENT: Atraumatic, Normocephaly, Mucus Membranes Moist Cardiac: Reg Rate and Rhythm, Normal S1 and S2 Lungs: Normal Breath Sounds Neuro: Alert and responsive Abdomen: Soft Skin: No rashes noted on visualized skin Musculoskeletal: No Chest Wall Tenderness Extremities: No Edema, Other (pedal pulses +1 bilaterally) Other: Bilateral groin cath access site: dressing C/D/I, no bleeding, oozing or hematoma at sites. Results 01/01/18 04:12 01/01/18 04:12 Lab Results 01/01/18 01/01/18 04:12 04:12 WBC 18.3 H Hgb 12.6 L D Hct 37.4 L Plt Count 260 Sodium 136 Potassium 3.6 Chloride 106 Carbon Dioxide 23 BUN 18 Creatinine 1.39 H Glucose 138 H Calcium 8.7 Active Medications Acetaminophen (Tylenol) 650 mg PO Q6HR PRN PRN Reason: Mild Pain Stop: 07/02/18 14:09 Hydrocodone Bitart/Acetaminophen (Gordon 5-325 Mg) 1 tab PO Q4HR PRN PRN Reason: Moderate Pain Stop: 07/02/18 14:09 Aspirin (Aspirin) 81 mg PO DAILY TARI Stop: 07/03/18 09:01 Last Admin: 01/01/18 08:50 Dose: 81 mg Diphenhydramine HCl (Benadryl) 25 mg PO HS PRN PRN Reason: Insomnia Stop: 07/02/18 14:09 Heparin Sodium (Porcine) (Heparin) 4,000 unit IVP Q6HR PRN PRN Reason: SEE COMMENTS Stop: 07/02/18 12:04 Heparin Sodium (Porcine) (Heparin) 2,000 unit IVP Q6H PRN PRN Reason: SEE COMMENTS Stop: 07/02/18 12:04 Heparin Sodium/Dextrose (Heparin 25,000 Unit/500 Ml D5w) 25,000 unit in 500 mls @ 18.017 mls/hr IVC .Q24H TARI; 12 UNIT/KG/HR PRN Reason: Protocol Stop: 07/02/18 12:16 Last Admin: 12/31/17 16:13 Dose: Not Given Ondansetron HCl (Zofran) 4 mg IVP Q8HR PRN PRN Reason: Nausea And Vomiting Stop: 07/02/18 14:03 Rosuvastatin Calcium (Crestor) 40 mg PO HS TARI Stop: 07/02/18 21:01 Last Admin: 12/31/17 20:28 Dose: 40 mg Ticagrelor (Brilinta) 90 mg PO BID TARI Stop: 07/02/18 21:01 Last Admin: 01/01/18 08:50 Dose: 90 mg - Imaging and Cardiology Echo: report reviewed Cardiac cath: report reviewed Other Results: 12 hour tele: avg HR=76 SR. Frequent episodes of NSVT, max 7 beats. - EKG Interpretation EKG results cardiology: personally reviewed Consult Discharge Plan - Plan [facility]errals: [facility]Primary Care Provider[facility] -
[2018-01-01] MEDS: Magnesium Oxide 400 MG TABLET PO SCH ×2 (10:37→19:57)
[2018-01-01] MEDS: *HR* Heparin 5,000 UNIT/ML VIAL SQ SCH ×2 (10:37→17:26)
[2018-01-02 04:35] LABS: Basophils # 0.1 K/mcL (0.0-0.2); Basophils % 0.7 %; Eosinophils # 0.2 K/mcL (0.0-0.6); Eosinophils % 1.2 %; Hematocrit 38.4 % (37.5-50.1); Hemoglobin 12.7 g/dL (12.9-16.9); Immature Granulocytes % 0.5 % (0-4); Lymphocytes # 2.4 K/mcL (0.6-4.6); Lymphocytes % 14.7 %; Mean Corpuscular HGB Conc 33.1 g/dL (31.6-35.5); Mean Corpuscular Hemoglobin 31.1 pg (28.0-33.3); Mean Corpuscular Volume 94.1 fL (83.0-100.0); Mean Platelet Volume 9.4 fL (9.4-12.4); Monocytes # 1.9 K/mcL (0.0-1.3); Monocytes % 11.5 %; Neutrophils # 11.6 K/mcL (1.6-8.9); Platelet Count 245 K/mcL (140-400); Red Blood Count 4.08 M/mcL (4.19-5.50); Red Cell Distribution Width 13.3 % (11.5-14.5); Segmented Neutrophils % 71.4 %
[2018-01-02 04:50] LABS: BUN/Creatinine Ratio 13 (6-26); Blood Urea Nitrogen 16 mg/dL (8-23); Calcium 8.8 mg/dL (8.6-10.3); Carbon Dioxide 24 mEq/L (23-29); Chloride 104 mEq/L (98-107); Glucose 98 mg/dL (70-105); Magnesium 1.7 mg/dL (1.6-2.6); Osmolality,Calculated 281 (280-300); Potassium 3.4 mEq/L (3.5-5.1); Sodium 135 mEq/L (136-145); eGFR For Non-African Americans 59 (> 60)
[2018-01-02] MEDS: *HR* Heparin 5,000 UNIT/ML VIAL SQ SCH ×2 (06:07→17:54)
[2018-01-02] MEDS: *HR* Ticagrelor 90 MG TABLET PO SCH ×2 (07:50→21:34)
[2018-01-02] MEDS: Aspirin 81 MG TAB.CHEW PO SCH (07:50)
--- NOTE | 2018-01-02 10:16 | Cardiology Progress Note ---
Date of Encounter: 01/02/18 Time of Encounter: 09:45 Assessment and Plan (1) STEMI (ST elevation myocardial infarction) Current Visit: Yes Status: Acute Inferior STEMI s/p emergent LHC (required pressor support, impella temporarily) s/p PTCA/KEITH to RCA. Cardiac arrest (VT) in ED--s/p CPR, defibrillation x2 with ROSC. Started on amiodarone (now off). LHC 12/31/17: s/p successful PTCA/KEITH to RCA (CO culprit); remaining moderate to severe CAD--50% mLAD with severe bridging; 95% mLCx (small vessel); 75% 1st OM ( small vessel). TTE 12/31/17: LVEF 50-55%, mild asymmetric hypertrophy of the basal septum, mild LV segmental dysfunction, mild LVDD, normal RV structure and function, no significant valvular dysfunction, basal inferior wall hypokinesis. No events overnight. States he feels he is doing well. Mild chest tenderness from CPR. Telemetry review shows normal sinus rhythm with an average heart rate of 79 bpm. No concerning arrhythmias seen. There was no complication from his procedure. Left femoral access site without hematoma. We discussed importance of uninterrupted DAPT (asa + brilinta) for a minimum of 1 year. Continue statin. Vital signs are now stable. We will start low-dose beta damon. We will step-down to 2 N when bed available. VTE prophylaxis: Heparin 5000 units SC q12H. Qualifiers: Involved coronary artery: right coronary artery Qualified Code(s): I21.11 - ST elevation (STEMI) myocardial infarction involving right coronary artery (2) Essential hypertension Current Visit: No Status: Chronic Controlled, continue to monitor. Discussion w patient/family: The assessment and plan as outlined above was discussed with the patient and/or family members who expressed understanding and agreement. All questions were answered. Thank you for involving us in the care of your patient. Please call with any questions. Subjective Principal diagnosis: STEMI, cardiac arrest Interval history: Patient resting comfortably in bed. Denies recurrent chest pain, dizziness, or palpitations. States his chest is sore when he moves around Objective Vital Signs, Last 4 Hours Temp Pulse Resp BP Pulse Ox 01/02/18 10:00 92 21 109/51 97 01/02/18 09:00 92 21 105/52 97 01/02/18 08:00 78 19 114/57 97 01/02/18 07:00 98.4 F 75 19 120/57 97 General: Conversant, No Apparent Distress HEENT: Atraumatic, Normocephaly, Mucus Membranes Moist Neck: No JVD, Normal carotid pulses Cardiac: Reg Rate and Rhythm, Normal S1 and S2, No Murmur Lungs: Normal Breath Sounds, No Wheeze, Rales, Rhonchi Neuro: Alert and responsive, No focal deficits noted Abdomen: Soft, Non-Tender Skin: No rashes noted on visualized skin Musculoskeletal: No Chest Wall Tenderness Extremities: No Clubbing, No Cyanosis, No Edema, Normal Pulses, Other (No problem noted was left femoral access site. Groin is soft.) Results 01/02/18 04:12 01/02/18 04:12 Lab Results 01/02/18 01/02/18 04:12 04:12 WBC 16.2 H Hgb 12.7 L Hct 38.4 Plt Count 245 Sodium 135 L Potassium 3.4 L Chloride 104 Carbon Dioxide 24 BUN 16 Creatinine 1.21 Glucose 98 Calcium 8.8 Magnesium 1.7 - Imaging and Cardiology Echo: report reviewed - EKG Interpretation EKG results cardiology: personally reviewed Consult Discharge Plan - Plan [facility]errals: [facility] [Primary Care Provider] -
[2018-01-02] MEDS ORDERED: Acetaminophen 325 MG TABLET PO PRN (12:07)
[2018-01-02] MEDS ORDERED: Ondansetron 4 MG/2 ML VIAL IVP PRN (12:07)
[2018-01-02] MEDS ORDERED: *HR* HYDROcodone/Acet 5/325 mg TABLET PO PRN (12:07)
[2018-01-03] MEDS: *HR* Heparin 5,000 UNIT/ML VIAL SQ SCH (05:33)
[2018-01-03] MEDS ORDERED: Aspirin 81 MG TAB.CHEW PO SCH (09:00)
[2018-01-03] MEDS: *HR* Ticagrelor 90 MG TABLET PO SCH (09:41)
[2018-01-03 11:24] VITALS: BP 138/76
--- NOTE | 2018-01-03 12:55 | Discharge Summary ---
Orders not resulted at time of discharge: Pending orders 01/01/18 07:00 ECG 12 lead ECG [ECG] Routine 01/03/18 12:00 BMP [Basic Metabolic Panel] Routine Date of Encounter: 01/03/18 Time of Encounter: 10:00 - Discharge Diagnosis (1) STEMI (ST elevation myocardial infarction) Priority: Primary Status: Acute Qualifiers: Involved coronary artery: right coronary artery Qualified Code(s): I21.11 - ST elevation (STEMI) myocardial infarction involving right coronary artery (2) Essential hypertension Priority: Secondary Status: Chronic - Hospital Course Hospital course: Mr. Avalos is a 73 year old male who presented as inferior STEMI; in ED suffered cardiac arrest (VT) and underwent CPR and defibrillation with successful ROSC. He was emergently taken to the cathode maker and is s/p successful KEITH to RCA. Of note, he temporarily required pressors and impella; however was weaned off shortly after PCI. He was kept in ICU for 48 hours for observations. TTE demonstrated preserved LVEF. Patient was stepped down out of ICU yesterday. He has been ambulating in room and hallways without chest pain/discomfort or arrhythmias. Labs, vitals, and telemetry have been stable. Bilateral groin cath site stable. Post PCI discharge instructions including importance of uninterrupted DAPT (asa + brilinta) emphasized for a minimum of 1 year. He is on statin and BB. He was noted to have residual CAD, currently chest pain free. He will follow-up with Dr. Steiner to discuss possible staged PCI. All questions and concerns were addressed; Mr. Avalos verbalized understanding of all information provided and agrees with plan. Potassium 3.4 on 01/02/18; 40 meq K given today, recheck toady was the same. Will Rx 20 meq x5 days and recheck BMP in [address] Wilson who agrees with plan as stated above. - Time Spent with Patient Total time spent providing and/or coordinating discharge services: Specific discharge activities: NO heavy lifting >5 pounds for 1 week. Keep [facility] access sites(s) clean and dry until healed. No driving x1 week. Please provide written information regarding PCI discharge instructions. - Discharge Medications Prescriptions: Nitroglycerin [Nitrostat] 0.4 mg SL Q5MIN PRN #30 tab.subl PRN Reason: Chest Pain Potassium Chloride [K-Tab ER] 20 meq PO DAILY #5 tablet.er RX: Rosuvastatin [Crestor] 40 mg PO HS #30 tablet RX: Ticagrelor [Brilinta] 90 mg PO BID #60 tablet Home Medications: Ascorbic Acid [Vitamin C] 250 mg PO DAILY 12/31/17 [History] Aspirin [Adult Aspirin] 81 mg PO DAILY 12/31/17 [History] Metoprolol XL (24 HR) Succ [Toprol Xl] 50 mg PO DAILY 12/31/17 [History] hydroCHLOROthiazide [Hydrochlorothiazide] 25 mg PO DAILY 12/31/17 [History] Nitroglycerin [Nitrostat] 0.4 mg SL Q5MIN PRN #30 tab.subl 01/03/18 [Rx] Potassium Chloride [K-Tab ER] 20 meq PO DAILY #5 tablet.er 01/03/18 [Rx] Rosuvastatin [Crestor] 40 mg PO HS #30 tablet 01/03/18 [Rx] Ticagrelor [Brilinta] 90 mg PO BID #60 tablet 01/03/18 [Rx] Allergies/Adverse Reactions: 3 Allergy/AdvReac Type Severity Reaction Status Date / Time No Known Allergies Allergy Unverified 03/13/16 10:23 Date of admission: 12/31/17 12:50 [facility] care physician: [facility] Consults: 12/31/17 14:02 Consult to Cardiac Rehabilitation-Phase1 [CONS] Routine Comment: Reason for Consult: AMI Call Completed: Yes Consult to Nurse Navigator [CONS] Routine Comment: Discharging clinician: Karely Hanson Anticipated date of discharge: 01/03/18 Physical Examination Vital Signs, Last 4 Hours Pulse Resp BP Pulse Ox 01/03/18 11:56 76 01/03/18 11:21 81 18 138/76 97 01/03/18 09:52 74 General: Conversant, No Apparent Distress HEENT: Atraumatic, Normocephaly, Mucus Membranes Moist Neck: No JVD, Normal carotid pulses Cardiac: Reg Rate and Rhythm, Normal S1 and S2, No Murmur Lungs: Normal Breath Sounds, No Wheeze, Rales, Rhonchi Neuro: Alert and responsive, No focal deficits noted Abdomen: Soft, Non-Tender Skin: No rashes noted on visualized skin Musculoskeletal: No Chest Wall Tenderness Extremities: No Clubbing, No Cyanosis, No Edema, Normal Pulses - Patient Status Disposition: Home, Self-Care Condition: Good Functional capacity at discharge: independent ambulation Overall status at discharge: patient is progressing back to baseline - Discharge Instructions Follow Up With: [facility] [Primary Care Provider[facility] - Marino Steiner MD [Partnered Physician] - (5-7 days; office will call with appt date and time) Additional Instructions: RISK FACTORS: STOP SMOKING: If you smoke, STOP. Smoking or tobacco use significantly increases your risk of heart disease because nicotine causes the arteries to narrow or constrict. It also causes fats to stick to the artery. Your chances of having a heart attack are greatly increased if you continue to smoke. For more information, call the education line for smoking cessation 1-618-VCYNIVR EAT A LOW FAT/CHOLESTEROL/SODIUM DIET: This diet may help reduce your chances of having a heart attack. LIFTING: Avoid lifting anything more than 10 pounds for 5-7 days Prior to straining, laughing, sneezing and/or coughing, apply manual pressure directly over insertion site. ACTIVITY: You may walk or climb stairs as tolerated You can resume sexual activity as tolerated In general, you are encouraged to engage in a minimum of 30 minutes or more of moderate intensity physical activity, such as brisk walking, daily or at least 3 -4 times weekly BATHING Do not submerge the site into water (bath tub, hot tub, swimming pool) for 1 week. This can be a source for infection into the blood stream. You may shower after 24 hours SITE CARE: After 24 hours, you may remove the dressing and leave the site open to air. Keep the site clean and dry. Clean gently and pat dry. You can expect bruising and tenderness that gradually resolve within a week or two. Return to work as instructed per your physician Resume driving as instructed per physician Keep all scheduled follow up appointments Resume medications as instructed IMPORTANT: If prescribed a Platelet Aggregation Inhibitor such as, Plavix, Brilinta or Effient: Duration of therapy is minimum one year These medications are often used in combination with Aspirin in prevention of future heart attacks Never discontinue unless consult with your Stockroom Helper STROKE (CVA) Risk factors for a stroke are: Age, cigarette smoking, diabetes, excessive alcohol consumption, family history, high blood pressure, overweight, physical inactivity, prior stroke, heart attack, diagnosis of carotid artery stenosis or other artery disease. Warning signs: Sudden numbness or weakness of the face, arm or leg; especially on one side of the body, sudden confusion, trouble speaking or understanding, sudden trouble seeing in one or both eyes, sudden trouble walking, dizziness, loss of balance or coordination, sudden severe headache with no cause. Call 911 or go to the Emergency Room. CONGESTIVE HEART FAILURE: If you have been diagnosed with Congestive Heart Failure (CHF) and your symptoms return, make an appointment with your physician Weigh yourself daily. Notify your physician if you have a weight gain of two or more pounds in one day or five or more pounds in one week. If you experience any difficulty breathing, please call 911 BLEEDING: Although the risk of bleeding is minimal, it can happen. If you have any bleeding from the site, apply firm pressure above the puncture site for 10-15 minutes. If the bleeding does not stop, continue manual pressure and call 911 Contact your physician if: You develop a fever greater than 101 degrees Fahrenheit Your site becomes reddened or has any drainage You have an increase in pain or burning at the site or if a large knot forms at the site. If you experience chest pain, shortness of breath, dizziness, or extreme tiredness, stop the activity and rest. Please notify your physicians office if you experience any of these symptoms and they are not relieved by rest please call 911! - Diet and Activity Activity: increase activity as tolerated (per post PCI discharge instructions. ) Diet: low fat, low cholesterol, low salt diet
[2018-01-03 14:00] LABS: BUN/Creatinine Ratio 13 (6-26); Blood Urea Nitrogen 16 mg/dL (8-23); Calcium 9.2 mg/dL (8.6-10.3); Carbon Dioxide 22 mEq/L (23-29); Chloride 104 mEq/L (98-107); Glucose 131 mg/dL (70-105); Osmolality,Calculated 281 (280-300); Potassium 3.4 mEq/L (3.5-5.1); Sodium 134 mEq/L (136-145); eGFR For Non-African Americans 58 (> 60)
--- NOTE | 2018-01-03 16:37 | Electrocardiograph Report ---
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
--- NOTE | 2018-01-03 16:39 | Electrocardiograph Report ---
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
--- NOTE | 2018-01-03 16:41 | Electrocardiograph Report ---
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
== END 2018-01-03 16:20 | disposition home or self-care (01) | DRG 215 ==
LOC: ICNU 11:55 → EMEROOARM 11:55 → ICNU 12:24 → SUATTDRO 12:50 → 2NNU 01-02 11:38
PROVIDERS: ADMIT Internal Medicine; ATTEND Emergency Medicine